=== PATIENT | female | born 1965 | race Caucasian/White ===

== ENCOUNTER 2018-11-10 13:57 | Outpatient (CLI) | payer MEDICARE, MEDICAID | END 2018-11-10 23:59 | disposition home or self-care (01) | LOC: STAR 13:57 | PROVIDERS: ATTEND Orthopaedic Surgery | DX: Z01.818 Encounter for other preprocedural examination (principal); T84.84XA Pain due to internal orthopedic prosthetic devices, implants and grafts, initial encounter; M16.11 Unilateral primary osteoarthritis, right hip; Z96.641 Presence of right artificial hip joint | CPT/HCPCS: 36415; 80053; 83036; 85025; 85610; 85730; 87081; 87806; 93005; G0475 ==

== ENCOUNTER 2018-11-14 07:32 | Inpatient (IN) | payer MEDICARE, MEDICAID ==
[~2018-11-14] VITALS: Ht 157.5 cm; Wt 76.1 kg
== END 2018-11-15 15:05 | disposition home or self-care (01) | DRG 468 ==
LOC: OUT 07:32 → EDSTATUS 10:30 → ORIP 12:37 → 4NOR 16:28
PROVIDERS: ADMIT Orthopaedic Surgery; ATTEND Orthopaedic Surgery
PROC: 0SR906A Replacement of Right Hip Joint with Oxidized Zirconium on Polyethylene Synthetic Substitute, Uncemented, Open Approach (ICD-10-PCS; principal; 2018-11-14)
PROC: 0SP90JZ Removal of Synthetic Substitute from Right Hip Joint, Open Approach (ICD-10-PCS; 2018-11-14)
PROC: 0T9B80Z Drainage of Bladder with Drainage Device, Via Natural or Artificial Opening Endoscopic (ICD-10-PCS; 2018-11-14)
DX: T84.030A Mechanical loosening of internal right hip prosthetic joint, initial encounter (principal); F41.9 Anxiety disorder, unspecified
CPT/HCPCS: 36415; 72170; 85014; 85018; 86850; 86900; C1713; G0378; J0171; J0690; J1100; J1885; J2250; J2405; J2704; J2710; J2795; J3010; J3370; J3480; C1762; C1776; J0330; J2175; J7050; J7120